=== PATIENT | female | born 1970 | race Caucasian/White ===

== ENCOUNTER 2016-11-11 21:28 | Emergency (ER) | payer OTHER ==
[~2016-11-11] VITALS: Ht 175.3 cm; Wt 73.5 kg
[~2016-11-11 21:28] MED LIST: ACETAMINOPHEN-1 EAC1 PO; ALEVE220 M1 PO; APAP/CODEINE ELI5 M1 PO; BISACODYL SUPP10 MG RECTAL; CIPROFLOXACIN500 M1 PO; DOCUSATE SODIU100 MG PO; HYDROCODONE-APA1 TA1 PO; IBUPROFEN 600600 M1 PO; IBUPROFEN 800800 M1 PO; KEFLEX500 MG PO; LISINOPRIL10 MG PO; NAPROSYN500 MG PO; NICOTINE1 EAC1 TRANSDERM; NORCO 5-325 TA1 EACH PO; NORVASC10 MG PO; PT NOT TAKING MEDS; ZPAK PO
[2016-11-11] MEDS ORDERED: LOPRESSOR100 M1 PO (21:37)
[2016-11-11] MEDS ORDERED: KEFLEX500 MG PO (22:16)
[2016-11-11] MEDS ORDERED: TRIPLE ANTIBIOT30 G2 TP (22:16)
== END 2016-11-11 22:42 | disposition home or self-care (01) ==
LOC: ER 21:28
DX: T22.212A Burn of second degree of left forearm, initial encounter (principal); F10.129 Alcohol abuse with intoxication, unspecified; L03.90 Cellulitis, unspecified; T79.9XXA Unspecified early complication of trauma, initial encounter; F17.210 Nicotine dependence, cigarettes, uncomplicated; I10 Essential (primary) hypertension; X08.8XXA Exposure to other specified smoke, fire and flames, initial encounter; Y93.89 Activity, other specified; Z91.041 Radiographic dye allergy status; Z88.8 Allergy status to other drugs, medicaments and biological substances; Y92.89 Other specified places as the place of occurrence of the external cause; Y99.9 Unspecified external cause status